=== PATIENT | male | born 1945 | race Caucasian/White ===

== ENCOUNTER → 2017-11-05 10:18 | Outpatient (CLI) | payer MEDICARE, OTHER, SELFPAY ==
[2017-11-05 12:27] LABS: Aspartate Aminotransferase 30 IU/L (17-59); Blood Urea Nitrogen 19 mg/dL (9-20); Calcium 9.7 mg/dL (8.4-10.2); Carbon Dioxide 26 mmol/L (22-32); Chloride 104 mmol/L (98-107); Cholesterol 177 mg/dL (140-199); Estimated Glomerular Filt Rate > 60.0 mL/min (>60); Glucose 101 mg/dL (80-110); HDL Cholesterol 59 mg/dL (40-60); HEMOLYSIS < 15 (0-50); LDL Cholesterol Calculated 103 mg/dL (<100); Potassium 4.8 mmol/L (3.4-5.1); Sodium 142 mmol/L (137-145); Triglycerides 76 mg/dL (35-150)
[2017-11-05 12:34] LABS: Free T4, Direct Thyroxine 1.06 ng/dL (0.78-2.19)
[2017-11-05 13:08] LABS: Vitamin B12 582 pg/mL (239-931)
== END ==
PROVIDERS: PCP Internal Medicine; Visit Provider Internal Medicine
DX: R97.20 Elevated prostate specific antigen [PSA] (principal); E78.00 Pure hypercholesterolemia, unspecified; E53.8 Deficiency of other specified B group vitamins; R00.1 Bradycardia, unspecified; B38.9 Coccidioidomycosis, unspecified
CPT/HCPCS: 36415; 80048; 80061; 82607; 84153; 84439; 84443; 84450; 86635

== ENCOUNTER → 2017-11-21 10:44 | Outpatient (CLI) | payer MEDICARE, OTHER, SELFPAY ==
[2017-11-23 13:53] LABS: PSA Free % 12 % (calc) (> 25); PSA, Total 10.9 ng/mL (< 4.1)
== END ==
PROVIDERS: PCP Internal Medicine; Visit Provider Internal Medicine
DX: R97.20 Elevated prostate specific antigen [PSA] (principal)
CPT/HCPCS: 36415; 84153; 84154

== ENCOUNTER → 2018-02-12 11:40 | Outpatient (CLI) | payer MEDICARE, OTHER, SELFPAY ==
[2018-02-16 01:59] LABS: PSA Free % 13 % (calc) (> 25)
== END ==
PROVIDERS: PCP Internal Medicine; Visit Provider Urology
DX: R97.20 Elevated prostate specific antigen [PSA] (principal)
CPT/HCPCS: 36415; 84153; 84154

== ENCOUNTER 2018-10-22 07:44 | Day surgery (SDC) | payer MEDICARE, OTHER, SELFPAY ==
[2018-10-22 08:50] VITALS: BP 131/72; PULSE 49; RESP 16; TEMP 36.1; O2SAT 98; BMI 28.5
[2018-10-22] MEDS: PROPARACAINE 0.5% OPHTH SOL 2 DROPS EYE-OP (08:50)
[2018-10-22] MEDS: CATARACT EYE COMPOUND (10 DROPS/SYRINGE) 3 DROPS EYE-OP (08:55)
--- NOTE | 2018-10-22 09:43 | PM.PREOP ---
Pre-operative Note Interval Note History & Physical reviewed/Exam performed by Physician: No Changes to H&P: No
--- NOTE | 2018-10-22 09:43 | PM.OP.1 ---
Operative Date/Time/Diagnoses Pre-op diagnosis: Nuclear cataract right eye Procedure & Clinicians Procedure: Cataract Surgery Same procedure as scheduled: Yes Surgeon: Moses Gao Anesthesia Type: MAC +/- and Sedation Operative Notes Procedure in detail: Patient brought to the operating suite. Tetracaine drops placed in the right eye. Patient was prepped and draped in sterile manner. Wire lid speculum was placed in the eye. Betadine drops were placed on the eye. This was irrigated. Lidocaine jelly was placed on the eye. A paracentesis port was created with a side-port blade. 0.1 mL 1% preservative free lidocaine was injected into the anterior chamber. The anterior chamber was deepened with viscoelastic. 2.6 mm keratome was used to create a temporal clear corneal incision. Cystotome and Utrata forceps were used to create continuous tear capsulorrhexis. Balanced salt solution was used to hydro dissect the nucleus. The phacoemulsification handpiece was inserted and the nucleus was removed using the stop and chop technique. The irrigation aspiration handpiece was inserted and the remaining cortex was removed. Anterior chamber was deepened with viscoelastic. An López ZCB00 intraocular lens with a power of 20.0 was injected into the capsular bag. Irrigation aspiration handpiece was inserted and the remaining viscoelastic was removed. Incision was hydrated with balanced salt solution and found to be leak free with pressure with Weck-Jennifer sponges. 0.1 mL Vigamox injected anterior chamber. 0.3 mL Kenalog 10 mg was injected subconjunctivally. Lid speculum was removed. The patient left the operating room in excellent condition. Complications: none Condition: stable Disposition: same day surgery
[2018-10-22] MEDS: PHENYLEPHRINE/LIDOCAINE VIAL (OR) 0.2 ML EYE-OP (10:02)
[2018-10-22] MEDS: LIDOCAINE JELLY 2% 5 ML 1 APPLIC TOP (10:03)
[2018-10-22] MEDS: TRIAMCINOLONE 50 MG/5 ML VIAL INJ (10:03)
[2018-10-22] MEDS: TETRACAINE 0.5% OPHTH DROPS 4 ML 2 DROPS EYE-OP (10:03)
[2018-10-22] MEDS: MOXIFLOXACIN OPHTH DROPS 3 ML BOTTLE 2 DROPS INJ (10:03)
[2018-10-22] MEDS: CHONDROIDTIN/SOD HYALURONATE 1.05 ML SYRINGE INTRAOCULA (10:04)
[2018-10-22] MEDS: BALANCED SALT IRRIG SOLN NO.2 500 ML, EPINEPHrine 1 MG IRR (10:04)
[2018-10-22 10:19] VITALS: BP 113/62; PULSE 48; RESP 18; TEMP 36.6; O2SAT 96
== END 2018-10-22 10:38 | disposition home or self-care (01) ==
PROVIDERS: PCP Internal Medicine; Visit Provider Ophthalmology
PROC: (CPT 66984; principal; 2018-10-22 09:45)
DX: H25.11 Age-related nuclear cataract, right eye (principal)
CPT/HCPCS: 66984; J0171; J2250; J3010; J3301

== ENCOUNTER 2018-10-29 06:54 | Day surgery (SDC) | payer MEDICARE, OTHER, SELFPAY ==
[2018-10-29] MEDS: PROPARACAINE 0.5% OPHTH SOL 2 DROPS EYE-OP (07:05)
[2018-10-29] MEDS: CATARACT EYE COMPOUND (10 DROPS/SYRINGE) 3 DROPS EYE-OP (07:10)
[2018-10-29 07:13] VITALS: BP 134/74; PULSE 47; RESP 20; TEMP 36.6; O2SAT 98
[2018-10-29 07:14] VITALS: BMI 28.5
--- NOTE | 2018-10-29 08:02 | PM.PREOP ---
Pre-operative Note Interval Note History & Physical reviewed/Exam performed by Physician: No Changes to H&P: No
--- NOTE | 2018-10-29 08:02 | PM.OP.1 ---
Operative Date/Time/Diagnoses Pre-op diagnosis: Nuclear Cataract Left eye Post-op diagnosis: same Procedure & Clinicians Surgeon: Moses Gao Anesthesia Type: MAC +/- and Sedation Operative Notes Procedure in detail: Patient brought to the operating suite. Tetracaine drops placed in the left eye. Patient was prepped and draped in sterile manner. Wire lid speculum was placed in the eye. Betadine drops were placed on the eye. This was irrigated. Lidocaine jelly was placed on the eye. A paracentesis port was created with a side-port blade. 0.1 mL 1% preservative free lidocaine was injected into the anterior chamber. The anterior chamber was deepened with viscoelastic. 2.6 mm keratome was used to create a temporal clear corneal incision. Cystotome and Utrata forceps were used to create continuous tear capsulorrhexis. Balanced salt solution was used to hydro dissect the nucleus. The phacoemulsification handpiece was inserted and the nucleus was removed using the stop and chop technique. The irrigation aspiration handpiece was inserted and the remaining cortex was removed. Anterior chamber was deepened with viscoelastic. An López ZCB00 intraocular lens with a power of 20.5 was injected into the capsular bag. Irrigation aspiration handpiece was inserted and the remaining viscoelastic was removed. Incision was hydrated with balanced salt solution and found to be leak free with pressure with Weck-Jennifer sponges. 0.1 mL Vigamox injected anterior chamber. 0.3 mL Kenalog 10 mg was injected subconjunctivally. Lid speculum was removed. The patient left the operating room in excellent condition. Complications: none Condition: stable Disposition: same day surgery
[2018-10-29] MEDS: TRIAMCINOLONE 50 MG/5 ML VIAL INJ (08:39)
[2018-10-29] MEDS: PHENYLEPHRINE/LIDOCAINE VIAL (OR) 0.2 ML EYE-OP (08:39)
[2018-10-29] MEDS: MOXIFLOXACIN OPHTH DROPS 3 ML BOTTLE 2 DROPS INJ (08:39)
[2018-10-29] MEDS: CHONDROIDTIN/SOD HYALURONATE 1.05 ML SYRINGE INTRAOCULA (08:39)
[2018-10-29] MEDS: BALANCED SALT IRRIG SOLN NO.2 500 ML, EPINEPHrine 1 MG IRR (08:40)
[2018-10-29] MEDS: LIDOCAINE JELLY 2% 5 ML 1 APPLIC TOP (08:40)
[2018-10-29] MEDS: TETRACAINE 0.5% OPHTH DROPS 4 ML 2 DROPS EYE-OP (08:40)
== END 2018-10-29 08:59 | disposition home or self-care (01) ==
LOC: OR 06:57
PROVIDERS: PCP Internal Medicine; Visit Provider Ophthalmology
PROC: (CPT 66984; principal; 2018-10-29 08:30)
DX: H25.12 Age-related nuclear cataract, left eye (principal)
CPT/HCPCS: 66984; J0171; J2250; J3010; J3301

== ENCOUNTER → 2018-11-19 09:10 | Outpatient (CLI) | payer MEDICARE, OTHER, SELFPAY ==
[2018-11-19 10:22] LABS: Aspartate Aminotransferase 25 IU/L (17-59); BUN Creatinine Ratio 16.4 (6-22); Blood Urea Nitrogen 18 mg/dL (9-20); Calcium 9.6 mg/dL (8.4-10.2); Carbon Dioxide 27 mmol/L (22-32); Chloride 104 mmol/L (98-107); Cholesterol 216 mg/dL (140-199); Estimated Glomerular Filt Rate > 60.0 mL/min (>60); Glucose 93 mg/dL (80-110); HDL Cholesterol 49 mg/dL (40-60); HEMOLYSIS < 15 (0-50); LDL Cholesterol Calculated 145 mg/dL (<100); Potassium 4.2 mmol/L (3.4-5.1); Sodium 141 mmol/L (137-145); Triglycerides 112 mg/dL (35-150)
== END ==
PROVIDERS: PCP Internal Medicine; Visit Provider Internal Medicine
DX: E78.2 Mixed hyperlipidemia (principal); R97.20 Elevated prostate specific antigen [PSA]
CPT/HCPCS: 36415; 80048; 80061; 84450

== ENCOUNTER → 2020-01-05 16:33 | Outpatient (CLI) | payer MEDICARE, OTHER, SELFPAY ==
--- NOTE | 2020-01-05 | DI.RAD.S_ITS ---
PROCEDURE: XR HAND RT 2V INDICATIONS: Right Hand Pain TECHNIQUE: 3 views of the hand(s) acquired. COMPARISON: None. FINDINGS: Bones: No fractures or dislocations. There is cortical irregularity and lucency seen along the mid shaft of the 5th metacarpus along the ulnar aspect of the bone. No associated soft tissue masses. There is minimal polyarticular joint narrowing with periarticular osteophyte formation. Carpal bones are normally aligned. No suspicious bony lesions. Soft tissues: No suspicious soft tissue calcifications. IMPRESSION: Cortical irregularity and lucency involving the midshaft of the 5th metacarpus along the ulnar aspect of the bone. Underlying infection or neoplastic process cannot be excluded and clinical correlation is recommended. If indicated, pre and post-contrast MRI could be performed for further assessment. Dictated by: Abiodun TINSLEY Interpreted: Luis Manley MD on 01/05/2020 at 16:53 Approved by: Luis Manley M.D. on 01/05/2020 at 17:40
== END ==
PROVIDERS: PCP Internal Medicine; Referring Provider Internal Medicine; Visit Provider Internal Medicine
DX: M79.641 Pain in right hand (principal)
CPT/HCPCS: 73120

== ENCOUNTER → 2020-02-04 19:13 | Outpatient (ROUT) | payer MEDICARE, OTHER, SELFPAY ==
[2020-02-04 20:02] LABS: Aspartate Aminotransferase 26 IU/L (17-59); BUN Creatinine Ratio 13.3 (6-22); Blood Urea Nitrogen 18 mg/dL (9-20); Calcium 9.3 mg/dL (8.4-10.2); Carbon Dioxide 24 mmol/L (22-32); Chloride 107 mmol/L (98-107); Cholesterol 196 mg/dL (140-199); Estimated Glomerular Filt Rate 51.4 mL/min (>60); Glucose 90 mg/dL (80-110); HDL Cholesterol 49 mg/dL (40-60); HEMOLYSIS < 15 (0-50); LDL Cholesterol Calculated 118 mg/dL (<100); Potassium 4.4 mmol/L (3.4-5.1); Sodium 138 mmol/L (137-145); Triglycerides 147 mg/dL (35-150)
== END ==
PROVIDERS: PCP Internal Medicine; Visit Provider Internal Medicine
DX: E78.2 Mixed hyperlipidemia (principal)
CPT/HCPCS: 80048; 80061; 84450

== ENCOUNTER 2021-12-05 21:11 | Emergency (ER) | payer MEDICARE, OTHER, SELFPAY ==
[2021-12-05 21:16] VITALS: BP 183/91; PULSE 70; RESP 16; TEMP 36.7; O2SAT 99
--- NOTE | 2021-12-05 21:20 | ED.WOUNDLAC ---
HPI - Wound/Laceration General Chief Complaint: Wound/Laceration Stated Complaint: FALL HIT RIGHT EAR Time Seen by Provider: 12/05/21 21:20 Source: patient Mode of arrival: Ambulatory Limitations: no limitations History of Present Illness HPI narrative: Patient is a 76 male not on anticoagulation who is here for evaluation of injuries that he sustained when he fell. He was working near some water. He was bending over. He fell forward. He hit his right ear and sustained a laceration to the right ear. He also has laceration at the top of his head and to both of his upper extremities. No other injuries from the event. There was no loss of consciousness. No neck pain. Related Data Previous Rx's Medication Instructions Recorded trazodone 50 mg tablet 100 mg PO BEDTIME PRN sleep #180 11/09/21 tabs amoxicillin 875 mg-potassium 1 tab PO BID 7 days #14 tabs 12/05/21 clavulanate 125 mg tablet Allergies Allergy/AdvReac Type Severity Reaction Status Date / Time No Known Drug Allergies Allergy Verified 11/07/21 09:45 Review of Systems ENT Ears, Nose, Mouth, and Throat: Reports system reviewed and no additional complaints, except as documented and Reports as per HPI Integumentary/Breasts Skin/Breast: Reports system reviewed and no additional complaints, except as documented Hematologic/Lymphatic On Anticoagulants: No Patient History Medical History Ventral hernia Social History household members: spouse Exam Initial Vital Signs Initial Vital Signs: Vital Signs Temperature 98.1 F 12/05/21 21:16 Pulse Rate 70 12/05/21 21:16 Respiratory Rate 16 12/05/21 21:16 Blood Pressure 183/91 H 12/05/21 21:16 Pulse Oximetry 99 12/05/21 21:16 Oxygen Delivery Method 12/05/21 21:16 Const General: cooperative, comfortable and well developed HENMT Head: abrasion (Top of head) HENMT Other: There is a ?V? shaped laceration on the backside of the right auricle. There is no cartilage tears. Skin Other: ?V? shaped laceration on the posterior aspect of the right auricle. There is no cartilage involvement. There is skin abrasion on his forehead and also on both upper extremities. No active bleeding. Extrem General: normal to inspection and capillary refill normal Procedures Laceration Repair Laceration 1: Site: other (Right ear) Side (If applicable): right Size (cm): 6 Description: flap Depth: simple, single layer Local Anesthetic: lidocaine 1% Amount of anesthesia used (mL): 4 Pre-repair: wound explored, irrigated extensively and deep structures intact Skin layer closed with: nylon Skin layer suture size: 6-0 Number of sutures: 12 Technique: simple, interrupted Course Orders Ordered: Discontinued Medications Amoxicillin/Clavulanate Potassium (Amoxicillin/Clav 875/125 Mg) 1 tab PO NOW ONE Stop: 12/05/21 22:18 Last Admin: 12/05/21 22:22 Dose: 1 tab Documented By: DARCIE Bacitracin (Bacitracin Oint 0.9 Gm Pckt) 1 applic TOP NOW ONE Stop: 12/05/21 22:18 Last Admin: 12/05/21 22:22 Dose: 1 applic Documented By: DARCIE Vital Signs Vital signs: Vital Signs - 8 hr 12/05/21 21:16 12/05/21 22:32 Temperature 98.1 F Pulse Rate 70 65 Respiratory Rate 16 16 Blood Pressure 183/91 H 135/69 Pulse Oximetry 99 99 Oxygen Delivery Method Room Air Room Air MDM - Wound/Laceration MDM Narrative Medical decision making narrative: The skin abrasions knee no intervention. The right ear laceration was closed as described above. There were no auricular hematoma was noted. The cartilage and the laceration appears well. Given the nature of the wound the location of the wound we will start patient on antibiotics. He is up-to-date on his tetanus. He was given care instructions and return precautions. He expressed understanding and agreement. Discharge Plan Departure Patient Disposition: Home Clinical Impression: Laceration Instructions: DI for Laceration Repair Activity Restrictions/Additional Instructions: The stitches that were placed to need to be removed in 7-[address] topical antibiotic ointment over the area. Please take the antibiotics as directed. They were transmitted to [facility]. Return to the emergency department for any new or worsening symptoms. Prescriptions: New amoxicillin-pot clavulanate 875-125 mg tablet 1 tab PO BID 7 Days Qty: 14 0RF No Action trazodone 50 mg tablet 100 mg PO BEDTIME PRN (Reason: sleep) Qty: 180 1RF Referrals: Pito Christensen MD [Primary Care Provider] - Visit Report Forms: Patient Portal/API
[2021-12-05] MEDS: BACITRACIN OINT 0.9 GM PCKT 1 APPLIC TOP (22:22)
[2021-12-05] MEDS: AMOXICILLIN/CLAV 875/125 MG 1 TAB PO (22:22)
[2021-12-05 22:32] VITALS: BP 135/69; PULSE 65; RESP 16; O2SAT 99
== END 2021-12-05 22:33 | disposition home or self-care (01) ==
PROVIDERS: Emergency Provider Emergency Medicine; PCP Internal Medicine
DX: S01.311A Laceration without foreign body of right ear, initial encounter (principal); W19.XXXA Unspecified fall, initial encounter
CPT/HCPCS: 12014; 99283; 99284

== ENCOUNTER → 2022-02-15 10:41 | Outpatient (CLI) | payer MEDICARE, OTHER, SELFPAY ==
[2022-02-15 13:07] LABS: Hematocrit 38.3 % (41-53); Hemoglobin 13.3 g/dL (13.5-17.5); Mean Corpuscular HGB Conc 34.7 % (30-36); Mean Corpuscular Hemoglobin 34.4 PG (26-34); Mean Corpuscular Volume 99.3 fL (80-100); Platelet Count 193 X10^3/uL (150-400); Red Blood Cell Count 3.86 X10^6/uL (4.5-5.9); Red Cell Distribution Width 12.5 % (11.6-14.8); White Blood Cell Count 9.9 X10^3/uL (4.5-11.0)
[2022-02-15 13:18] LABS: Alanine Aminotransferase 14 IU/L (<50); Albumin 3.9 g/dL (3.5-5.0); Albumin Globulin Ratio 1.2 (1.0-2.8); Alkaline Phosphatase 58 U/L (38-126); Aspartate Aminotransferase 24 IU/L (17-59); BUN Creatinine Ratio 13.7 (6-22); Bilirubin Total 0.9 mg/dL (0.2-1.3); Blood Urea Nitrogen 17 mg/dL (9-20); Calcium 9.1 mg/dL (8.4-10.2); Carbon Dioxide 26 mmol/L (22-32); Chloride 101 mmol/L (98-107); Cholesterol 180 mg/dL (140-199); Estimated Glomerular Filt Rate 60 mL/min (>60); Globulin 3.3 g/dL (1.7-4.1); Glucose 92 mg/dL (80-110); HDL Cholesterol 44 mg/dL (40-60); HEMOLYSIS < 15 (0-50); LDL Cholesterol Calculated 110 mg/dL (<100); Potassium 4.4 mmol/L (3.4-5.1); Sodium 137 mmol/L (137-145); Total Protein 7.2 g/dL (6.3-8.2); Triglycerides 132 mg/dL (35-150)
[2022-02-15 13:44] LABS: Prostate Specific Antigen 6.35 ng/mL (0.10-4.00)
[2022-02-15 13:46] LABS: TSH w/ Reflex to FT4 3.38 uIU/mL (0.47-4.68)
== END ==
PROVIDERS: PCP Internal Medicine; Referring Provider Internal Medicine; Visit Provider Internal Medicine
DX: E78.2 Mixed hyperlipidemia (principal); R97.20 Elevated prostate specific antigen [PSA]; J84.10 Pulmonary fibrosis, unspecified; R03.0 Elevated blood-pressure reading, without diagnosis of hypertension
CPT/HCPCS: 36415; 80053; 80061; 84153; 84443; 85027

== ENCOUNTER → 2023-10-30 11:03 | Outpatient (CLI) | payer MEDICARE, OTHER, SELFPAY ==
--- NOTE | 2023-10-30 11:05 | DI.RAD.S_ITS ---
PROCEDURE: XR CHEST 2V INDICATIONS: cough TECHNIQUE: 2 views of the chest were acquired. COMPARISON: [facility], , CHEST 2 VIEW, 06/22/2015, 15:02. FINDINGS: Surgical changes and devices: None. Lungs and pleura: Increased interstitial prominence bilaterally most notable right. Mediastinum: Mediastinal contours are normal. Heart size is large. Bones and chest wall: No suspicious bony abnormalities. Soft tissues appear unremarkable. IMPRESSION: Interstitial prominence bilaterally. While this could represent edema, appearance also raises suspicion for interstitial pneumonia. Dictated by: Brook Anguiano M.D. on 10/30/2023 at 20:38 Approved by: Brook Anguiano M.D. on 10/30/2023 at 20:38
== END ==
PROVIDERS: PCP Internal Medicine; Referring Provider Internal Medicine; Visit Provider Internal Medicine
DX: J20.9 Acute bronchitis, unspecified (principal); R79.89 Other specified abnormal findings of blood chemistry
CPT/HCPCS: 71046

== ENCOUNTER → 2023-10-31 09:06 | Outpatient (CLI) | payer MEDICARE, OTHER, SELFPAY ==
[2023-10-31 10:21] LABS: Hematocrit 38.4 % (41-53); Hemoglobin 13.3 g/dL (13.5-17.5); Mean Corpuscular HGB Conc 34.7 % (30-36); Mean Corpuscular Hemoglobin 34.2 PG (26-34); Mean Corpuscular Volume 98.5 fL (80-100); Platelet Count 232 X10^3/uL (150-400); Red Cell Distribution Width 12.6 % (11.6-14.8); White Blood Cell Count 9.9 X10^3/uL (4.5-11.0)
[2023-10-31 10:46] LABS: Alanine Aminotransferase 14 IU/L (<50); Albumin Globulin Ratio 1.2 (1.0-2.8); Alkaline Phosphatase 63 U/L (38-126); Aspartate Aminotransferase 26 IU/L (17-59); BUN Creatinine Ratio 9.6 (6-22); Bilirubin Total 0.9 mg/dL (0.2-1.3); Blood Urea Nitrogen 13 mg/dL (9-20); Calcium 8.9 mg/dL (8.4-10.2); Carbon Dioxide 27 mmol/L (22-32); Chloride 103 mmol/L (98-107); Cholesterol 176 mg/dL (140-199); Estimated Glomerular Filt Rate 53 mL/min (>60); Globulin 3.4 g/dL (1.7-4.1); Glucose 101 mg/dL (80-110); HDL Cholesterol 47 mg/dL (40-60); HEMOLYSIS < 15 (0-50); LDL Cholesterol Calculated 108 mg/dL (<100); Potassium 4.7 mmol/L (3.4-5.1); Sodium 133 mmol/L (137-145); Total Protein 7.4 g/dL (6.3-8.2); Triglycerides 103 mg/dL (35-150)
[2023-10-31 11:14] LABS: Prostate Specific Antigen 11.6 ng/mL (0.10-4.00)
[2023-10-31 11:21] LABS: TSH w/ Reflex to FT4 3.01 uIU/mL (0.47-4.68)
== END ==
PROVIDERS: PCP Internal Medicine; Referring Provider Internal Medicine; Visit Provider Internal Medicine
DX: R97.20 Elevated prostate specific antigen [PSA] (principal); E78.2 Mixed hyperlipidemia; R03.0 Elevated blood-pressure reading, without diagnosis of hypertension
CPT/HCPCS: 36415; 80053; 80061; 84153; 84443; 85027

== ENCOUNTER → 2023-12-19 09:44 | Outpatient (CLI) | payer MEDICARE, OTHER, SELFPAY ==
--- NOTE | 2023-12-19 09:45 | DI.US.S_ITS ---
PROCEDURE: US RENAL COMPLETE INDICATIONS: CKD TECHNIQUE: Real-time scanning was performed of the kidneys and bladder, with image documentation. COMPARISON: None. FINDINGS: Kidneys: Kidneys are normal in size. Right kidney measures 11.5 cm long; left kidney measures 12.1 cm long. Right renal cortical thickness is 1.5 cm; left renal cortical thickness is 2.1 cm. Renal cortical echotexture is normal. No hydronephrosis or nephrolithiasis. No suspicious solid mass lesions. Bladder: Pre-void bladder volume is 276 mL. Post-void residual is 30 mL. Pre-void images demonstrate no intraluminal masses or stones. On pre-void images, bilateral ureteral jets are noted with color Doppler interrogation. (Of note, ureteral jets may not be detectable in up to 25% of cases due to insufficient differences in specific gravity between ureteral and bladder urine). The prostate is prominent. Miscellaneous: No free pelvic fluid. IMPRESSION: No acute abnormality demonstrated with renal ultrasound. There is prominence of the prostate. Dictated by: Paul Mcmahan M.D. on 12/19/2023 at 12:46 Approved by: Paul Mcmahan M.D. on 12/19/2023 at 13:12
== END ==
PROVIDERS: PCP Internal Medicine; Referring Provider Internal Medicine; Visit Provider Internal Medicine
DX: N18.31 Chronic kidney disease, stage 3a (principal)
CPT/HCPCS: 76770

== ENCOUNTER → 2024-01-24 15:13 | Outpatient (CLI) | payer MEDICARE, OTHER, SELFPAY ==
--- NOTE | 2024-01-24 15:15 | DI.RAD.S_ITS ---
PROCEDURE: XR SHOULDER LT MIN 2V INDICATIONS: Left Shoulder Pain TECHNIQUE: 3 views of the shoulder were acquired. COMPARISON: None. FINDINGS: Bones: [id number] glenohumeral and acromioclavicular degenerative changes. No acute displaced fracture or dislocation. Soft tissues: Mild calcific tendinopathy IMPRESSION: Degenerative changes without acute radiographic abnormality. If there is high concern for further derangement, consider MRI evaluation. Dictated by: Wesley Peña M.D. on 01/25/2024 at 9:31 Approved by: Wesley Peña M.D. on 01/25/2024 at 9:32
== END ==
PROVIDERS: PCP Internal Medicine; Referring Provider Internal Medicine; Visit Provider Internal Medicine
DX: M25.512 Pain in left shoulder (principal)
CPT/HCPCS: 73030